=== PATIENT | male | born 1960 | race Caucasian/White ===

== ENCOUNTER → 2016-11-18 08:53 | Outpatient (CLI) | payer MEDICAID ==
[2015-12-24 14:29] VITALS: BMI 19.7
[~2016-11-18 08:53] MED LIST: BAYER CHEWABLE81 MG PO; HYDROCODONE-APA1 TAB PO; MIRALAX17 GM PO; NICODERM C1 PATCH .2 TRANSDERM; NORVASC10 MG PO; NORVASC5 MG PO; PLAVIX75 MG PO; PROTONIX40 MG PO; PROZAC20 MG PO; TYLENOL #4 W/CO1 TAB PO; XARELTO15 MG PO
[2016-11-19 08:21] LABS: IMMUNOGLOBULIN E 134 IU/mL (0-100)
== END | disposition home or self-care (01) ==
LOC: D.RT 08:53
PROVIDERS: Internal Medicine Pulmonary Disease
DX: J44.9 Chronic obstructive pulmonary disease, unspecified (principal)

== ENCOUNTER → 2017-01-13 11:21 | Outpatient (CLI) | payer MEDICAID ==
[2015-12-24 14:29] VITALS: BMI 19.7
== END | disposition home or self-care (01) ==
LOC: D.US 11:00
DX: R60.0 Localized edema (principal); M79.605 Pain in left leg

== ENCOUNTER → 2017-02-01 12:57 | Outpatient (CLI) | payer MEDICAID ==
[2015-12-24 14:29] VITALS: BMI 19.7
== END | disposition home or self-care (01) ==
LOC: D.CT 12:57
DX: M79.9 Soft tissue disorder, unspecified (principal)

== ENCOUNTER 2017-06-27 14:42 | Emergency (ER) | payer MEDICAID ==
[2015-12-24 14:29] VITALS: BMI 19.7
[2017-06-27 15:26] LABS: BASOPHILS 0.2 % (0-2); EOSINOPHILS 0.6 % (0-7); HEMATOCRIT 35.7 % (42.0-54.0); HEMOGLOBIN 12.1 g/dL (13.5-17.5); IMMATURE GRANULOCYTES 0.2 % (0-5); LYMPHOCYTES 14.2 % (15-50); MCHC 33.9 g/dL (31.0-37.0); MCV 88.4 fL (80.0-100.0); MEAN PLATELET VOLUME 9.5 fL (7.4-10.4); NEUTROPHILS 72.8 % (40-80); PLATELET COUNT 364 10x3/uL (130-400); RBC 4.04 10x6/uL (4.20-6.10); RDW 14.6 % (11.5-14.5); WBC 12.2 10x3/uL (4.8-10.8)
[2017-06-27 15:38] LABS: APTT 29.3 SECONDS (22.8-39.4); INR 0.9 (0.85-1.17)
[2017-06-27 16:19] LABS: ALBUMIN 3.5 g/dL (3.4-5.0); ALKALINE PHOSPHATASE 54 U/L (46-116); ALT (SGPT) 17 U/L (10-68); BILIRUBIN - TOTAL 0.26 mg/dL (0.2-1.3); CALC OSMOLALITY 276 mosm/kg (275-300); CALCIUM 8.7 mg/dL (8.5-10.1); CARBON DIOXIDE 23.9 mmol/L (21.0-32.0); CHLORIDE - SERUM 105 mmol/L (98-107); CREATININE - SERUM 0.6 mg/dL (0.6-1.3); GLUCOSE 109 mg/dL (74-106); POTASSIUM - SERUM 3.9 mmol/L (3.5-5.1); PROTEIN - SERUM 6.9 g/dL (6.4-8.2); SODIUM 140 mmol/L (136-145); UREA NITROGEN 4 mg/dL (7-18); eGFR NON AFRICAN AMERICAN > 90 mL/min (90-120)
== END 2017-06-27 17:47 | disposition home or self-care (01) ==
LOC: D.ER 14:42
PROVIDERS: Family Medicine; Physician Assistant
DX: R51 Headache (principal); S49.92XA Unspecified injury of left shoulder and upper arm, initial encounter; W01.0XXA Fall on same level from slipping, tripping and stumbling without subsequent striking against object, initial encounter; Y93.89 Activity, other specified; Y92.89 Other specified places as the place of occurrence of the external cause; R07.81 Pleurodynia; Z79.01 Long term (current) use of anticoagulants; K21.9 Gastro-esophageal reflux disease without esophagitis; F17.200 Nicotine dependence, unspecified, uncomplicated

== ENCOUNTER → 2017-07-05 09:10 | Outpatient (CLI) | payer MEDICAID ==
[2015-12-24 14:29] VITALS: BMI 19.7
--- NOTE | 2017-07-19 08:55 | ST ---
PATIENT:SUJIT SPANGLER MEDICAL RECORD: [id number] SEX: M LOCATION:[facility] ORDER #: ADMISSION DATE: 07/05/17 AGE OF PATIENT: 56 REFERRING PHYSICIAN: INTERPRETING PHYSICIAN: ERICA VERGARA MD DATE OF SERVICE: 07/05/2017 PROCEDURE: Lexiscan directed stress test. The patient had 12.7 mCi of sestamibi injected at rest and 32.1 mCi sestamibi injected at stress. We utilized a standard Lexiscan protocol. The procedure was completed without any difficulties. The gated imaging revealed an ejection fraction of 60%. The SPECT imaging reveals no evidence of significant ischemia or infarction. The study was essentially negative. TRANSINT:[id number] Voice Confirmation ID: [id number] DOCUMENT ID: [id number] ERICA VERGARA MD at 0855 CC: [id number] DICTATION DATE: 07/07/17 0756 CIVIL ENGINEERING TECHNICIAN: 07/07/17 1059 DEP CLI 07/05/17 [address] [place] [address]
== END | disposition home or self-care (01) ==
LOC: D.NM 09:10
DX: R07.9 Chest pain, unspecified (principal); R06.02 Shortness of breath

== ENCOUNTER → 2017-07-13 17:21 | Outpatient (CLI) | payer MEDICAID ==
[2015-12-24 14:29] VITALS: BMI 19.7
[2017-07-13 19:55] LABS: CHOL - HDL RATIO 2.6 ratio (2.3-4.9); LDL-HDL RATIO 1.4 ratio (1.5-3.5)
== END | disposition home or self-care (01) ==
LOC: D.LABREF 17:21
PROVIDERS: Internal Medicine Cardiovascular Disease
DX: I25.10 Atherosclerotic heart disease of native coronary artery without angina pectoris (principal)

== ENCOUNTER → 2017-09-27 13:01 | Outpatient (CLI) | payer MEDICAID ==
[2015-12-24 14:29] VITALS: BMI 19.7
== END | disposition home or self-care (01) ==
LOC: D.US 13:01
DX: I65.23 Occlusion and stenosis of bilateral carotid arteries (principal); I20.9 Angina pectoris, unspecified

== ENCOUNTER 2017-09-27 14:20 | Emergency (ER) | payer MEDICAID ==
[2015-12-24 14:29] VITALS: BMI 19.7
[2017-09-27 15:23] LABS: APPEARANCE CLEAR (CLEAR); BILIRUBIN NEGATIVE (NEGATIVE); COLOR YELLOW (YELLOW); GLUCOSE NEGATIVE (NEGATIVE); KETONE NEGATIVE (NEGATIVE); NITRITE NEGATIVE (NEGATIVE); PROTEIN NEGATIVE (NEGATIVE); SPECIFIC GRAVITY 1.015 (1.005-1.020); UROBILINOGEN NORMAL (NORMAL)
== END 2017-09-27 18:40 | disposition home or self-care (01) ==
LOC: D.ER 14:20
PROVIDERS: Family Medicine
DX: J06.9 Acute upper respiratory infection, unspecified (principal); J01.90 Acute sinusitis, unspecified; K21.9 Gastro-esophageal reflux disease without esophagitis; F17.200 Nicotine dependence, unspecified, uncomplicated

== ENCOUNTER 2017-10-24 17:14 | Emergency (ER) | payer MEDICAID ==
[2015-12-24 14:29] VITALS: BMI 19.7
[2017-10-24 18:37] LABS: INR 2.44 (0.85-1.17); PROTIME 25.9 SECONDS (11.6-15.0)
[2017-10-24 18:39] LABS: D-DIMER-QUANTITATIVE 0.96 ug/mLFEU (0.20-0.54)
[2017-10-24 18:40] LABS: BASOPHILS 0.3 % (0-2); EOSINOPHILS 0.8 % (0-7); HEMATOCRIT 30.1 % (42.0-54.0); HEMOGLOBIN 10.1 g/dL (13.5-17.5); IMMATURE GRANULOCYTES 0.3 % (0-5); LYMPHOCYTES 16.6 % (15-50); MCH 28.3 pg (26.0-34.0); MCHC 33.6 g/dL (31.0-37.0); MCV 84.3 fL (80.0-100.0); MEAN PLATELET VOLUME 9.8 fL (7.4-10.4); MONOCYTES 12.8 % (2-11); NEUTROPHILS 69.2 % (40-80); PLATELET COUNT 410 10x3/uL (130-400); RBC 3.57 10x6/uL (4.20-6.10); RDW 13.6 % (11.5-14.5); WBC 11.7 10x3/uL (4.8-10.8)
[2017-10-24 18:54] LABS: ALBUMIN 2.9 g/dL (3.4-5.0); ALKALINE PHOSPHATASE 175 U/L (46-116); ALT (SGPT) 121 U/L (10-68); CALC OSMOLALITY 271 mosm/kg (275-300); CALCIUM 8.9 mg/dL (8.5-10.1); CHLORIDE - SERUM 100 mmol/L (98-107); CREATININE - SERUM 0.8 mg/dL (0.6-1.3); GLUCOSE 109 mg/dL (74-106); POTASSIUM - SERUM 4.2 mmol/L (3.5-5.1); PROTEIN - SERUM 7.2 g/dL (6.4-8.2); SODIUM 136 mmol/L (136-145); UREA NITROGEN 10 mg/dL (7-18); eGFR NON AFRICAN AMERICAN > 90 mL/min (90-120)
== END 2017-10-24 21:45 | disposition home or self-care (01) ==
LOC: D.ER 17:14
PROVIDERS: Family Medicine; Nurse Practitioner Family
DX: S80.11XA Contusion of right lower leg, initial encounter (principal); W01.0XXA Fall on same level from slipping, tripping and stumbling without subsequent striking against object, initial encounter; Y93.89 Activity, other specified; Y92.019 Unspecified place in single-family (private) house as the place of occurrence of the external cause; Z86.718 Personal history of other venous thrombosis and embolism; M79.604 Pain in right leg

== ENCOUNTER → 2017-11-14 13:30 | Outpatient (CLI) | payer MEDICAID ==
[2015-12-24 14:29] VITALS: BMI 19.7
[2017-11-15 06:39] LABS: CHOL - HDL RATIO 2.6 ratio (2.3-4.9); LDL-HDL RATIO 1.4 ratio (1.5-3.5)
== END ==
LOC: D.LABREF 13:30
PROVIDERS: Internal Medicine Cardiovascular Disease
DX: I25.10 Atherosclerotic heart disease of native coronary artery without angina pectoris (principal)

== ENCOUNTER → 2017-12-16 09:46 | Outpatient (CLI) | payer MEDICAID ==
[2015-12-24 14:29] VITALS: BMI 19.7
== END | disposition home or self-care (01) ==
LOC: D.US 09:46
DX: D50.9 Iron deficiency anemia, unspecified (principal)

== ENCOUNTER → 2017-12-30 12:53 | Outpatient (CLI) | payer MEDICAID ==
[2015-12-24 14:29] VITALS: BMI 19.7
== END | disposition home or self-care (01) ==
LOC: D.CT 12:53
DX: N28.1 Cyst of kidney, acquired (principal)

== ENCOUNTER → 2018-01-16 19:35 | Outpatient (CLI) | payer MEDICAID ==
[2015-12-24 14:29] VITALS: BMI 19.7
== END | disposition home or self-care (01) ==
LOC: D.LAB 19:35
DX: R31.9 Hematuria, unspecified (principal)

== ENCOUNTER → 2018-01-27 15:45 | Outpatient (CLI) | payer MEDICAID ==
[2015-12-24 14:29] VITALS: BMI 19.7
== END | disposition home or self-care (01) ==
LOC: D.CT 15:45
DX: R31.0 Gross hematuria (principal)

== ENCOUNTER 2018-02-16 05:50 | Day surgery (SDC) | payer MEDICAID ==
[2018-02-15 16:34] LABS: HEMATOCRIT 32.9 % (42.0-54.0); HEMOGLOBIN 11.1 g/dL (13.5-17.5); MCH 28.2 pg (26.0-34.0); MCHC 33.7 g/dL (31.0-37.0); MCV 83.5 fL (80.0-100.0); MEAN PLATELET VOLUME 9.4 fL (7.4-10.4); RBC 3.94 10x6/uL (4.20-6.10); RDW 15.4 % (11.5-14.5); WBC 7.2 10x3/uL (4.8-10.8)
[~2018-02-16] VITALS: Ht 170.2 cm; Wt 58.1 kg
--- NOTE | ~2018-02-16 | OP ---
PATIENT NAME: SUJIT SPANGLER MEDICAL RECORD: [id number] :62 LOCATION:D.OPS ADMISSION DATE: SURGEON: BRYSON QURESHI MD DATE OF OPERATION: 02/16/2018 SURGEON: Bryson Qureshi MD ANESTHESIA: General anesthesia by Og Casiano CRNA DIAGNOSIS: Gross hematuria. PROCEDURE: Cystoscopy. 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 Single ureteral orifices bilaterally with vascular bladder mucosa. No bladder tumors seen. BLOOD LOSS: None. CLINICAL HISTORY: This is a 57-year-old male, who is a former smoker. He has had episodes of gross hematuria. 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 He had a CT scan of the abdomen and pelvis, which showed simple bilateral renal cysts. These are benign. There is also a 3-mm stone in the left kidney, which is nonobstructive. Urine cytology was normal. He comes today to have hematuria workup completion with cystoscopy. It should be noted that Dr. Travis, his emergency generator mechanic, okayed holding the Xarelto prior to the procedure. The patient is not allergic to any medications. He was given Ancef cert occupational therapy asst to the OR. He requested general anesthetic for this procedure. DESCRIPTION OF PROCEDURE: The patient was given induction of general anesthesia. He was placed in dorsal lithotomy position and prepped and draped. The 17-Maltese cystoscope with 30-degree lens was used for visualization. We used normal saline for irrigation fluid. Penile urethra shows no lesions and no strictures. Prostatic urethra shows a vascular mucosa. The lateral lobes are not obstructive, but the median lobe is somewhat enlarged. Going into the bladder, the bladder was not trabeculated. However, it is quite vascular. Single ureteral orifices were seen on each side. No bladder tumors were seen. The bladder was then emptied through the scope sheath and then the scope was removed entirely. I will see the patient in followup on a p.r.n. basis. TRANSINT:[id number] Voice Confirmation ID: [id number] DOCUMENT ID: [id number] BRYSON QURESHI MD at 1110 CC: [id number] DICTATION DATE: 02/16/18 0955 PROFILING MACHINE SET UP OPERATOR TOOL: 02/16/18 1013 [facility] [address] [place] [address]
[2018-02-16 06:36] VITALS: BP 112/72; Ht 170.2 cm; Wt 58.1 kg
== END 2018-02-16 11:45 | disposition home or self-care (01) ==
LOC: D.OPS 05:50 → D.PAN 08:00 → D.OPS 08:00 → D.PAN 08:35 → D.OPS 11:45
PROVIDERS: Anesthesiology
DX: N32.0 Bladder-neck obstruction (principal); N36.9 Urethral disorder, unspecified; N20.0 Calculus of kidney; R31.0 Gross hematuria; Z87.891 Personal history of nicotine dependence; Z79.01 Long term (current) use of anticoagulants; Z01.812 Encounter for preprocedural laboratory examination

== ENCOUNTER 2018-04-09 11:02 | Emergency (ER) | payer MEDICAID ==
[~2018-04-09] VITALS: Ht 170.2 cm; Wt 59.1 kg
[2018-04-09 11:11] VITALS: Ht 170.2 cm; Wt 59.1 kg
[2018-04-09] MEDS ORDERED: ASPIRIN81 MG PO (11:12)
[2018-04-09 13:46] VITALS: BP 142/78
== END 2018-04-09 13:47 | disposition home or self-care (01) ==
LOC: D.ER 11:02
DX: S80.11XA Contusion of right lower leg, initial encounter (principal); W22.8XXA Striking against or struck by other objects, initial encounter; Y93.89 Activity, other specified; Y92.89 Other specified places as the place of occurrence of the external cause; Z86.73 Personal history of transient ischemic attack (TIA), and cerebral infarction without residual deficits; I10 Essential (primary) hypertension; F17.200 Nicotine dependence, unspecified, uncomplicated

== ENCOUNTER → 2018-04-14 16:06 | Outpatient (CLI) | payer MEDICAID ==
[2018-04-09 11:11] VITALS: BMI 20.4
[~2018-04-14 16:06] MED LIST changes: +ASPIRIN81 MG PO
== END | disposition home or self-care (01) ==
LOC: D.US 16:00
DX: I73.9 Peripheral vascular disease, unspecified (principal); M79.605 Pain in left leg; M79.604 Pain in right leg

== ENCOUNTER 2018-05-29 15:33 | Emergency (ER) | payer MEDICAID ==
[~2018-05-29] VITALS: Ht 170.2 cm; Wt 60.0 kg
[2018-05-29 15:40] VITALS: Ht 170.2 cm; Wt 60.0 kg
[2018-05-29] MEDS ORDERED: TALWIN NX1 TAB PO (16:32)
[2018-05-29] MEDS ORDERED: BACLOFEN20 M1 PO (16:32)
[2018-05-29 22:40] VITALS: BP 171/99
== END 2018-05-29 17:06 | disposition home or self-care (01) ==
LOC: D.ER 15:33
DX: S59.911A Unspecified injury of right forearm, initial encounter (principal); W22.8XXA Striking against or struck by other objects, initial encounter; Y93.89 Activity, other specified; Y92.89 Other specified places as the place of occurrence of the external cause; Z86.73 Personal history of transient ischemic attack (TIA), and cerebral infarction without residual deficits; I10 Essential (primary) hypertension

== ENCOUNTER 2018-07-29 13:44 | Emergency (ER) | payer MEDICAID ==
[~2018-07-29] VITALS: Ht 170.2 cm; Wt 57.7 kg
[~2018-07-29 13:44] MED LIST changes: +BACLOFEN20 M1 PO; +TALWIN NX1 TAB PO
[2018-07-29 13:56] VITALS: Ht 170.2 cm; Wt 57.7 kg
[2018-07-29 14:23] LABS: BASOPHILS 0.3 % (0-2); HEMATOCRIT 34.4 % (42.0-54.0); HEMOGLOBIN 11.5 g/dL (13.5-17.5); IMMATURE GRANULOCYTES 0.3 % (0-5); LYMPHOCYTES 18.2 % (15-50); MCH 28.3 pg (26.0-34.0); MCHC 33.4 g/dL (31.0-37.0); MCV 84.5 fL (80.0-100.0); MEAN PLATELET VOLUME 9.4 fL (7.4-10.4); MONOCYTES 8.9 % (2-11); NEUTROPHILS 70.3 % (40-80); RBC 4.07 10x6/uL (4.20-6.10); RDW 16.4 % (11.5-14.5); WBC 11.2 10x3/uL (4.8-10.8)
[2018-07-29 14:28] LABS: PLATELET COUNT 449 10x3/uL (130-400)
[2018-07-29 14:35] LABS: APPEARANCE CLEAR (CLEAR); BILIRUBIN NEGATIVE (NEGATIVE); COLOR YELLOW (YELLOW); GLUCOSE NEGATIVE (NEGATIVE); KETONE NEGATIVE (NEGATIVE); NITRITE NEGATIVE (NEGATIVE); PROTEIN NEGATIVE (NEGATIVE); UROBILINOGEN NORMAL (NORMAL)
[2018-07-29 14:48] LABS: ALBUMIN 3.3 g/dL (3.4-5.0); ALKALINE PHOSPHATASE 71 U/L (46-116); ALT (SGPT) 12 U/L (10-68); BILIRUBIN - TOTAL 0.06 mg/dL (0.2-1.3); CALC OSMOLALITY 289 mosm/kg (275-300); CALCIUM 9.3 mg/dL (8.5-10.1); CARBON DIOXIDE 24.4 mmol/L (21.0-32.0); CHLORIDE - SERUM 109 mmol/L (98-107); CREATININE - SERUM 0.9 mg/dL (0.6-1.3); GLUCOSE 108 mg/dL (74-106); POTASSIUM - SERUM 3.3 mmol/L (3.5-5.1); PROTEIN - SERUM 7.6 g/dL (6.4-8.2); SODIUM 145 mmol/L (136-145); UREA NITROGEN 12 mg/dL (7-18); eGFR NON AFRICAN AMERICAN > 90 mL/min (90-120)
[2018-07-29 15:51] VITALS: BP 136/83
== END 2018-07-29 16:01 | disposition home or self-care (01) ==
LOC: D.ER 13:44
PROVIDERS: Family Medicine
DX: J06.9 Acute upper respiratory infection, unspecified (principal); G89.18 Other acute postprocedural pain; Z86.73 Personal history of transient ischemic attack (TIA), and cerebral infarction without residual deficits; I10 Essential (primary) hypertension; I73.9 Peripheral vascular disease, unspecified; F17.200 Nicotine dependence, unspecified, uncomplicated; Z48.02 Encounter for removal of sutures

== ENCOUNTER 2018-09-04 18:45 | Emergency (ER) | payer MEDICAID ==
[~2018-09-04] VITALS: Ht 170.2 cm; Wt 56.8 kg
[2018-09-04 19:06] VITALS: Ht 170.2 cm; Wt 56.8 kg
[2018-09-04] MEDS ORDERED: VOLTAREN75 MG PO (19:44)
[2018-09-04 20:10] VITALS: BP 138/85
== END 2018-09-04 20:10 | disposition home or self-care (01) ==
LOC: D.ER 18:45
DX: M10.9 Gout, unspecified (principal); G56.02 Carpal tunnel syndrome, left upper limb; I10 Essential (primary) hypertension; J44.9 Chronic obstructive pulmonary disease, unspecified; F17.200 Nicotine dependence, unspecified, uncomplicated

== ENCOUNTER 2018-12-20 16:01 | Emergency (ER) | payer MEDICAID ==
[~2018-12-20] VITALS: Ht 170.2 cm; Wt 67.7 kg
[~2018-12-20 16:01] MED LIST changes: +VOLTAREN75 MG PO
[2018-12-20 16:31] VITALS: Ht 170.2 cm; Wt 67.7 kg
[2018-12-20] MEDS ORDERED: SINEQUAN25 MG PO (16:36)
[2018-12-20 19:54] LABS: BASOPHILS 0.1 % (0-2); HEMATOCRIT 38.9 % (42.0-54.0); HEMOGLOBIN 13.4 g/dL (13.5-17.5); IMMATURE GRANULOCYTES 0.4 % (0-5); LYMPHOCYTES 15.8 % (15-50); MCH 28.9 pg (26.0-34.0); MCHC 34.4 g/dL (31.0-37.0); MCV 83.8 fL (80.0-100.0); MEAN PLATELET VOLUME 10.2 fL (7.4-10.4); MONOCYTES 9.7 % (2-11); RBC 4.64 10x6/uL (4.20-6.10); RDW 14.5 % (11.5-14.5); WBC 13.8 10x3/uL (4.8-10.8)
[2018-12-20 19:55] LABS: PLATELET COUNT 340 10x3/uL (130-400)
[2018-12-20 20:11] LABS: ALBUMIN 3.8 g/dL (3.4-5.0); ALKALINE PHOSPHATASE 78 U/L (46-116); ALT (SGPT) 13 U/L (10-68); BILIRUBIN - TOTAL 0.35 mg/dL (0.2-1.3); CALC OSMOLALITY 268 mosm/kg (275-300); CALCIUM 8.8 mg/dL (8.5-10.1); CARBON DIOXIDE 24.7 mmol/L (21.0-32.0); CHLORIDE - SERUM 98 mmol/L (98-107); CREATININE - SERUM 0.8 mg/dL (0.6-1.3); GLUCOSE 107 mg/dL (74-106); POTASSIUM - SERUM 3.6 mmol/L (3.5-5.1); PROTEIN - SERUM 8.1 g/dL (6.4-8.2); SODIUM 135 mmol/L (136-145); UREA NITROGEN 9 mg/dL (7-18); eGFR NON AFRICAN AMERICAN > 90 mL/min (90-120)
[2018-12-20] MEDS ORDERED: AUGMENTIN 875-11 TAB PO (21:16)
[2018-12-20 22:04] VITALS: BP 136/78
== END 2018-12-20 22:04 | disposition home or self-care (01) ==
LOC: D.ER 16:01
PROVIDERS: Family Medicine
DX: S61.255A Open bite of left ring finger without damage to nail, initial encounter (principal); S61.257A Open bite of left little finger without damage to nail, initial encounter; Y93.89 Activity, other specified; Y92.89 Other specified places as the place of occurrence of the external cause; Z23 Encounter for immunization

== ENCOUNTER 2018-12-23 14:55 | Outpatient (CLI) | payer MEDICAID ==
[~2018-12-23] VITALS: Ht 170.2 cm; Wt 67.7 kg
[~2018-12-23 14:55] MED LIST changes: +AUGMENTIN 875-11 TAB PO; +SINEQUAN25 MG PO
[2018-12-23 15:34] VITALS: BP 175/102; Ht 170.2 cm; Wt 67.7 kg
--- NOTE | 2018-12-23 16:07 | NUR ---
SPOKE WITH OFELIA IN PHARMACY. DIRECTED TO GIVE IN DELTOID, MIX WHEN MED COMES TO FLOOR AND GIVE IMMEDIATELY. NO NEED TO MONITOR AFTER ADMINISTRATION.
--- NOTE | 2018-12-23 16:47 | NUR ---
MEDICATION ADMINISTERED. DISCHARGE PAPERWORK GIVEN, ALL QUESTIONS ANSWERED.
== END 2018-12-23 16:56 | disposition home or self-care (01) ==
LOC: D.ER 14:55 → D.OPS 14:55 → EDSTATUS 15:40 → D.MS 15:41 → D.OPS 16:56
PROVIDERS: ATTEND Emergency Medicine
DX: Z23 Encounter for immunization (principal)

== ENCOUNTER 2018-12-27 14:59 | Outpatient (CLI) | payer MEDICAID ==
[~2018-12-27] VITALS: Ht 170.2 cm; Wt 67.7 kg
[2018-12-27 15:16] VITALS: BP 151/95; Ht 170.2 cm; Wt 67.7 kg
== END 2018-12-27 15:42 | disposition home or self-care (01) ==
LOC: D.OPS 14:59
PROVIDERS: ATTEND Emergency Medicine
DX: Z23 Encounter for immunization (principal)

== ENCOUNTER 2019-01-03 12:47 | Outpatient (CLI) | payer MEDICAID ==
[~2019-01-03] VITALS: Ht 170.2 cm; Wt 66.4 kg
[2019-01-03 13:03] VITALS: BP 134/90; Ht 170.2 cm; Wt 66.4 kg
== END 2019-01-03 13:10 | disposition home or self-care (01) ==
LOC: D.OPS 12:47
PROVIDERS: ATTEND Emergency Medicine
DX: Z20.3 Contact with and (suspected) exposure to rabies (principal); Z23 Encounter for immunization

== ENCOUNTER 2020-09-29 10:44 | Day surgery (SDC) | payer MEDICAID ==
[~2020-09-29] VITALS: Ht 170.2 cm; Wt 59.0 kg
--- NOTE | ~2020-09-29 | HEMODYNAMI ---
PATIENT:SUJIT SPANGLER MEDICAL RECORD: [id number] : 62 LOCATION:D.CAT ADMISSION DATE: 09/29/20 Generatedon:113:10 Patient name: SUJIT SPANGLER Patient #: [id number] : 1960 Date of study: 09/29/2020 Page: Of Hemodynamic Procedure Report Patient Data Patient Demographics Procedure consent was obtained First Name: SUJIT Gender: Male Last Name: ANÍBAL : 1960 Middle Initial: MICHAELA Age: 59 year(s) Patient #: [id number] Race: Unknown SSN: [id number] Additional ID: [id number] Contact details [address]: [address] [place] [address] rd State: [place] City: [place] Zip code: [address] Past Medical History Allergies: No known allergies Admission Admission Data Admission Date: 09/29/2020 Admission Time: 10:44 Lab Results Lab Result Date: 09/29/2020 Lab Result Time: 0:00 Biochemistry Name Units Result Min Max Creatinine mg/dl 0.9 --(-*--)-- 0.6 1.3 eGFR ml/min 90 --(*---)-- 90 120 NONAFRICAN Procedure Procedure Types Cath Procedure Sedation Charges Moderate Sedation 40-54 minutes Peripheral vascular Intervention Lithotripsy Litho W Ather ENVIRONMENTAL COMPLIANCE OFFICER Stent Procedure Description Procedure Date Procedure Date: 09/29/2020 Procedure Start Time: 12:17 Procedure End Time: 13:08 Procedure Staff Name Function Maria Antonia Demarco RT Monitor Madeline Gar RT Scrub Mauri Garcia RN Nurse Yassine Jones MD Performing Physician Procedure Data Cath Procedure Fluoroscopy Diagnostic fluoroscopy Total fluoroscopy Time: 6.4 time: 6.4 min min Diagnostic fluoroscopy Total fluoroscopy dose: 221 dose: 221 mGy mGy Contrast Material Contrast Material Type Amount (ml) Isovue 300 140 Entry Location Entry Primary Successful Side Size Upsize Upsize Entry Closure Succes sful Closure Location (Fr) 1 (Fr) 2 (Fr) Remarks Device Remarks Femoral Right 5 Fr Exoseal artery Femoral Left 6 Fr Exoseal artery Short Estimated blood loss: 10 ml Diagnostic catheters Device Type Used For End Catheter Placement DIAGNOSTIC Pigtail 5Fr Procedure catheter ([id number]) Procedure Complications No complications Procedure Medications Medication Administration Route Dosage Oxygen etCO2 Nasal cannula 2 l/min Lidocaine 2% added to field 20 Heparin Flush Bag added to field 2 bags (1000units/500ml NS) 0.9% NaCl I.V. 100 ml/hr Versed I.V. 1 mg Fentanyl I.V. 50 mcg Versed I.V. 1 mg Fentanyl I.V. 50 mcg Versed I.V. 1 mg Heparin Bolus I.V. 6000 units Plavix P.O. 600 mg Hemodynamics Rest Heart Rate: 69 (bpm) Snapshots Pre Cath Intra NCS Post Cath Vital Signs Time Heart Resp SPO2 etCO2 NIBP (mmHg) Rhythm Pain Sedation Rate (ipm) (%) (mmHg) Status Level (bpm) 12:07:53 66 18 100 39.9 136/86(116) NSR 0 (11) 10(A) , No pain 12:12:09 65 15 100 28.6 119/70(100) NSR 0 (11) 10(A) , No pain 12:16:20 67 15 99 40.7 115/68(98) NSR 0 (11) 10(A) , No pain 12:20:30 75 14 99 1.5 95/67(88) NSR 0 (11) 9(A) , No pain 12:24:34 73 13 100 37.7 95/63(90) NSR 0 (11) 9(A) , No pain 12:28:38 73 13 99 0.7 103/62(82) NSR 0 (11) 9(A) , No pain 12:32:43 69 15 100 8.3 95/65(84) NSR 0 (11) 9(A) , No pain 12:36:47 72 14 100 32.4 97/64(91) NSR 0 (11) 9(A) , No pain 12:40:53 74 16 100 26.4 113/58(85) NSR 0 (11) 9(A) , No pain 12:45:05 73 17 100 39.9 105/59(81) NSR 0 (11) 9(A) , No pain 12:49:17 67 18 100 39.2 105/64(93) NSR 0 (11) 9(A) , No pain 12:53:23 71 14 100 26.3 105/67(98) NSR 0 (11) 9(A) , No pain 12:57:31 69 12 99 31.6 102/61(82) NSR 0 (11) 9(A) , No pain 13:01:34 66 14 100 36.9 122/69(106) NSR 0 (11) 10(A) , No pain 13:05:44 67 19 100 34.6 120/76(108) NSR 0 (11) 10(A) , No pain Medications Time Medication Route Dose Verified Delivered Reason Notes Effectiveness by by 12:07:09 Oxygen etCO2 2 Juan C Goodwinie used for Nasal l/min St Dylan Garcia RN procedure cannula 12:07:16 Lidocaine 2% added 20ml Juan C Buffie for local to vial St Dylan Garcia RN anesthetic field AADMS 12:07:22 Heparin Flush added 2 Juan C Buffie used for Bag to bags St Dylan Garcia RN procedure (1000units/500ml field ADAMS NS) 12:07:31 0.9% NaCl I.V. 100 Juan C Goodwinie Per physician ml/hr St Dylan Garcia RN, MD 12:12:40 Versed I.V. 1 mg Juan C Dotson for sedation St Dylan Garcia RN, MD 12:12:47 Fentanyl I.V. 50 Juan C Dotson for sedation mcg St Dylan Garcia RN, MD 12:17:58 Versed I.V. 1 mg Juan C Goodwinie for sedation St Dylan Garcia RN, MD 12:18:02 Fentanyl I.V. 50 Juan C Goodwinie for sedation mcg St Dylan Garcia RN, MD 12:20:31 Versed I.V. 1 mg Juan C Dotson for sedation St Dylan Garcia RN, MD 12:26:25 Heparin Bolus I.V. 6000 Juan C Goodwinie for verif ied units St Dylan Garcia RN anticoagulation with dr MD jones 13:04:19 Plavix P.O. 600 Juan C Dotson for mg St Dylan Garcia RN antiplatelet therapy Procedure Log Time Note 11:48:36 Mauri Garcia RN sent for patient. Start room use. 11:59:09 Informed consent obtained and on chart 11:59:31 Procedure Status PCI. 11:59:32 Time tracking: Regular hours (M-F 7:00 - 5:00) 11:59:35 Plan of Care:Hemodynamics will remain stable., Cardiac rhythm will remain stable., Comfort level will be maintained., Respiratory function will remain adequate., Patient/ family verbilizes understanding of procedure., Procedure tolerated without complication., Recovers from procedure without complications.. 11:59:46 Patient received from Pre/Post Procedure Room to CCL 1 Alert and oriented. Tansferred to table in Supine position. 12:00:34 Warm blankets applied, and nate hugger turned on for patient comfort. 12:00:39 Correct patient and procedure confirmed by team. 12:00:45 ECG and BP/O2 sat monitors applied to patient. 12:06:44 Vital chart was started 12:06:46 Baseline sample Acquired. 12:06:49 Rhythm: atrial fibrillation 12:06:52 Full Disclosure recording started 12:07:09 Oxygen 2 l/min etCO2 Nasal cannula was administered by Mauri Garcia RN; used for procedure; Verbal order read back and verified. 12:07:16 Lidocaine 2% 20ml vial added to field was administered by Mauri Garcia RN; for local anesthetic; Verbal order read back and verified. 12:07:22 Heparin Flush Bag (1000units/500ml NS) 2 bags added to field was administered by Mauri Garcia RN; used for procedure; Verbal order read back and verified. 12:07:31 0.9% NaCl 100 ml/hr I.V. was administered by Mauri Garcia RN; Per physician; Verbal order read back and verified. 12:10:15 H&P Date Dictated: 09/29/2020 Within 30 days and on chart., H&P Addendum completed by physician on day of procedure. (MUST COMPLETE FOR ALL OUTPATIENTS). 12:10:16 Pre-procedure instructions explained to patient. 12:10:16 Pre-op teaching completed and patient verbalized understanding. 12:10:17 Family unavailable. 12:10:19 Patient NPO since Midnight. 12:10:25 Patient allergic to No known allergies 12:10:27 Is the patient allergic to Iodine/contrast media? No. 12:10:29 Is patient on blood thinner?Yes 12:10:41 LAST DOSE OF XARELTO ON TUESDAY 12:10:43 Patient diabetic? No. 12:10:47 Previous problem with sedation/anesthesia? No ? 12:10:50 Snore? Yes 12:10:51 Sleep apnea? No 12:10:52 Deviated septum? No 12:10:53 Opens mouth fully? Yes 12:10:53 Sticks out tongue? Yes 12:10:56 Airway obstruction? No ? 12:10:58 Dentures? No ? 12:11:11 IV patent on arrival in left forearm with 0.9% NaCl at [facility]. 12:12:04 Lab Result : Creatinine 0.9 mg/dl 12:12:04 Lab Result : eGFR NONAFRICAN 90 ml/min 12:12:07 Lab results completed and on chart. 12:12:12 Bilateral groins area was prepped with chlora-prep and draped in sterile fashion 12:12:13 Alarms reviewed by R. N. 12:12:14 Sharps counted by scrub and verified by R.N. 12:12:21 --------ALL STOP TIME OUT------ 12:12:21 Final Timeout: patient, procedure, and site verified with staff and physician. All members of the team are in agreement. 12:12:23 Bilateral groins site verified by team. 12:12:25 Fire Safety Assessment: A--An alcohol-based skin anteseptic being used preoperatively., C--Open oxygen or nitrous oxide is being used., D--An ESU, laser, or fiber-optic light is being used. 12:12:28 Physical assessment completed. ASA score P 2 - A patient with mild systemic disease as per Juan C Mcclellan MD. 12:12:30 1) 90+ Normal kidney functon but urine findings or structural abnormalities or genetic trait point to kidney disease. 12:12:32 Maximum allowable contrast dose (3.7 X eGFR X 0.75)250 ml. 12:12:36 Sedation plan: IV Moderate Sedation Medication:Versed, Fentanyl 12:12:40 Versed 1 mg I.V. was administered by Mauri Garcia RN; for sedation; Verbal order read back and verified. 12:12:47 Fentanyl 50 mcg I.V. was administered by Mauri Garcia RN; for sedation; Verbal order read back and verified. 12:13:08 Use device set CATH PACK 12:13:09 ACIST Syringe (26621) opened to sterile field. 12:13:10 ACIST Hand Control (37319) opened to sterile field. 12:13:10 ACIST Manifold (05545) opened to sterile field. 12:13:10 Medline Cath Pack ([id number]) opened to sterile field. 12:13:11 Bag Decanter (2002S) opened to sterile field. 12:13:11 EMERALD Guide Wire (502-415) opened to sterile field. 12:13:21 SHEATH 5FR Sayre (RPZ797) opened to sterile field. 12:13:22 SHEATH 6FR Sayre (SJF288) opened to sterile field. 12:13:33 TUBING High Pressure Extension Tubing (Robert) ([id number]) opened to sterile field. 12:13:37 INFLATOR Merit BasixCompak (KK4058) opened to sterile field. 12:15:31 Procedure started. 12:17:02 Local anesthetic to right femoral artery with Lidocaine 2% by Yassine Jones MD.INITIAL ACCESS ONLY 12:17:58 Versed 1 mg I.V. was administered by Mauri Garcia RN; for sedation; Verbal order read back and verified. 12:18:02 Fentanyl 50 mcg I.V. was administered by Mauri Garcia RN; for sedation; Verbal order read back and verified. 12:19:35 A 5 Fr sheath was inserted into the Right Femoral artery 12:20:31 Versed 1 mg I.V. was administered by Mauri Garcia RN; for sedation; Verbal order read back and verified. 12:21:07 A DIAGNOSTIC Pigtail 5Fr catheter ([id number]) was advanced over the wire and used for Procedure. 12:23:21 PIGTAIL USED TO VISUALIZE ILIACS FOR LEFT. FEMORAL STICK 12:26:25 Heparin Bolus 6000 units I.V. was administered by Mauri Garcia RN; for anticoagulation; verified with dr jones Verbal order read back and verified. 12:27:16 Local anesthetic to left femerol artery with Lidocaine 2% by Yassine Jones MD.ADDITIONAL ACCESS 12:27:23 A 6 Fr Short sheath was inserted into the Left Femoral artery 12:27:35 Asahi Minamo 300cm wire opened to sterile field. 12:32:37 MINAMO 300 wire advanced. 12:32:50 Wire advanced across lesion. 12:36:07 Inflate balloon Inflation number: 1 A SHOCKWAVE BALLOON 7 X 60 ([id number]) was prepped and advanced across the Proximal Common Iliac, Left , then inflated to 2 DREW for 1:02 (min:sec) . 12:36:22 FIRST INFLATION AT 2 DREW FOR 30 PULSES 12:37:10 Inflation number: 2 The SHOCKWAVE BALLOON 7 X 60 ([id number]) was reinflated across the Proximal Common Iliac, Left , to 4 DREW for 0:41 (min:sec) . 12:37:24 2ND INFLATION AT 4ATM FOR 30 PULSES 12:39:17 Inflation number: 3 The SHOCKWAVE BALLOON 7 X 60 ([id number]) was reinflated across the Proximal Common Iliac, Left , to 2 DREW for 0:49 (min:sec) . 12:39:33 2ND LESION AT 2ATMS FOR 30 PULSES 12:40:20 Inflation number: 4 The SHOCKWAVE BALLOON 7 X 60 ([id number]) was reinflated across the Proximal Common Iliac, Left , to 4 DREW for 0:40 (min:sec) . 12:40:37 2ND LESION AT 4ATMS FOR 30 PULSES 12:42:35 Inflation number: 5 The SHOCKWAVE BALLOON 7 X 60 ([id number]) was reinflated across the Proximal Common Iliac, Left , to 4 DREW for 0:51 (min:sec) . 12:42:48 2ND LESION AT 4ATMS FOR 30 PULSES 12:43:39 Inflation number: 6 The SHOCKWAVE BALLOON 7 X 60 ([id number]) was reinflated across the Proximal Common Iliac, Left , to 4 DREW for 0:44 (min:sec) . 12:43:57 2ND LESION AT 4ATMS FOR 30 PULSES 12:45:24 Inflation number: 7 The SHOCKWAVE BALLOON 7 X 60 ([id number]) was reinflated across the Proximal Common Iliac, Left , to 5 DREW for 1:02 (min:sec) . 12:47:38 Balloon removed over the wire. 12:51:06 Procedure type changed to Cath procedure, Sedation Charges, Moderate Sedation 40-54 minutes, Peripheral vascular Intervention, Lithotripsy, Litho W Ather ENVIRONMENTAL COMPLIANCE OFFICER Stent 12:54:14 Place stent Inflation Number: 8 A RICK 7 x 29 x 135 stent ([id number]) was prepped and advanced across the Proximal Common Iliac, Left . The stent was deployed at 9 DREW for 0:30 (min:sec) . 12:54:54 Stent catheter was removed intact over wire. 12:56:41 Wire removed. 12:57:54 EXOSEAL 6Fr (EX600) opened to sterile field. 12:57:55 EXOSEAL 5Fr (EX500) opened to sterile field. 12:58:43 Sheath removed intact; hemostasis achieved with Exoseal to the Left Femoral artery. 12:58:53 Sheath removed intact; hemostasis achieved with Exoseal to the Right Femoral artery. 13:00:57 Procedure ended.(Physican Out) 13:03:29 ACT drawn and resulted at 324 seconds. (normal therapeutic range 180-240 seconds). 13:04:19 Plavix 600 mg P.O. was administered by Mauri Garcia RN; for antiplatelet therapy; Verbal order read back and verified. 13:06:07 Fluoroscopy time 06.40 minutes. 13:06:10 Flurop Dose total: 221 13:06:10 Fluoroscopy dose: 221 mGy 13:06:14 Dose Area Product 14312 mGy/cm. 13:06:18 Contrast amount:Isovue 300 140ml. 13:06:20 Maximum allowable dose exceeded? No. 13:06:21 Sharps counted by scrub and verified by R.N. 13:06:24 Post-op/insertion site Right Femoral artery dressed using a 4 x 4 and Tegaderm. 13:06:26 Post-op/insertion site Left Femoral artery dressed using a 4 x 4 and Tegaderm. 13:06:30 Post-procedure physical assessment completed. ASA score P 2 - A patient with mild systemic disease as per Yassine Jones MD. 13:06:51 Post procedure rhythm: unchanged. 13:06:53 Estimated blood loss: 10 ml 13:06:54 Post procedure instruction explained to patient.Patient verbalizes understanding. 13:06:55 Patient needs reinforcement of post procedure teaching. 13:08:17 Procedure and supply charges have been captured, reviewed, submitted and are correct. 13:08:19 Procedure Complication : No complications 13:08:21 Vital chart was stopped 13:08:24 AFRO Findings: PVD: ENVIRONMENTAL COMPLIANCE OFFICER performed (see procedure notes) 13:08:25 Operative report dictated upon procedure completion. 13:08: See physician's report for complete and final results. 13:08:28 Report given to Pre/Post Procedure Room. 13:08:31 Patient transfered to Pre/Post Procedure Room with Bed. 13::33 Procedure ended. 13::33 Full Disclosure recording stopped 13:08:43 ACC-PCI Only Patient was given prescriptions, or instructed by Yassine Jones MD to start/continue the following medications upon discharge: Plavix 13:08:49 End room use (Document Last) 13:09:30 End room use (Document Last) 13:10:00 End room use (Document Last) Intervention Summary Intervention Notes Time ActionType Lesion and Equipment Used Action# Pressure Duration Attributes 12:36:07 Inflate Proximal SHOCKWAVE BALLOON 1 2 01:02 balloon Common 7 X 60 Iliac, Left ([id number]) 12:37:10 Reinflate Proximal SHOCKWAVE BALLOON 2 4 00:41 balloon Common 7 X 60 Iliac, Left ([id number]) 12:39:17 Reinflate Proximal SHOCKWAVE BALLOON 3 2 00:49 balloon Common 7 X 60 Iliac, Left ([id number]) 12:40:20 Reinflate Proximal SHOCKWAVE BALLOON 4 4 00:40 balloon Common 7 X 60 Iliac, Left ([id number]) 12:42:35 Reinflate Proximal SHOCKWAVE BALLOON 5 4 00:51 balloon Common 7 X 60 Iliac, Left ([id number]) 12:43:39 Reinflate Proximal SHOCKWAVE BALLOON 6 4 00:44 balloon Common 7 X 60 Iliac, Left ([id number]) 12:45:24 Reinflate Proximal SHOCKWAVE BALLOON 7 5 01:02 balloon Common 7 X 60 Iliac, Left ([id number]) 12:54:14 Place stent Proximal RICK 7 x 29 x 8 9 00:30 Common 135 stent Iliac, Left ([id number]) Device Usage Item Name Manufacture Quantity Catalog Number Hospital Part Cu rrent Minimal Lot# / Charge Number Stock Stock Serial# Code ACIST Syringe Acist 1 63124 657278 076139 98 4929 20 (35496) [employer] ACIST Hand Control Acist 1 80378 446663 797422 98 5360 5 (87562) [employer] ACIST Manifold Acist 1 30871 656544 473938 98 5375 5 (07480) [employer] Medline Cath Pack Medline 1 [id number] 992302 52678 98 5534 5 ([id number]) Bag Decanter Microtek 1 2001S 421107 96094 98 3127 5 (2001S) Medical Inc. EMERALD Guide Wire Cardinal 1 502-455 153068 434281 99 7104 5 (502-455) Health SHEATH 5FR Terumo 1 AFR377 772990 695529 99 3224 5 Sayre (AVX197) SHEATH 6FR Terumo 1 RTZ226 168802 285120 99 4372 40 Sayre (MGP859) TUBING High Merit 1 [id number] 873206 20451 99 8953 10 Pressure Extension Medical Tubing (Jones) ([id number]) INFLATOR Merit Merit 1 BQ4689 551204 209102 99 1476 15 [facility] (UV2808) DIAGNOSTIC Pigtail Cardinal 1 [id number] 417032 758800 99 9605 5 5Fr catheter Health (138308P) Asahi Minamo 300cm Asahi Intecc 1 [id number] 010425 4551626 10 9950 0 wire SHOCKWAVE BALLOON SHOCKWAVE 1 [id number] 581983 8118210 99 9997 1 7 X 60 MEDICAL ([id number]) RICK 7 x 29 x Cardinal 1 [id number] 743234 09601 99 9968 5 135 stent Health ([id number]) EXOSEAL 6Fr Cardinal 1 EX600 287638 298544 99 5486 10 (EX600) Health EXOSEAL 5Fr Cardinal 1 EX500 900433 194581 99 6913 10 (EX500) Health Signature Audit [place] Stage Time Signature Unsigned Intra-Procedure 09/29/2020 Maria Antonia Demarco 1:09:30 PM RT(R) Intra-Procedure 09/29/2020 Mauri Garcia RN 1:10:00 PM Intra-Procedure 09/29/2020 Yassine Jones MD 1:10:44 PM [address] [place] [address]
[~2020-09-29 10:44] MED LIST changes: +HYDROCODON-ACE1 EA10 PO
[2020-09-29 11:01] VITALS: BP 154/84; Ht 170.2 cm; Wt 59.0 kg
[2020-09-29 11:21] LABS: CALC OSMOLALITY 275 mosm/kg (275-300); CALCIUM 8.9 mg/dL (8.5-10.1); CARBON DIOXIDE 26.7 mmol/L (21.0-32.0); CHLORIDE - SERUM 101 mmol/L (98-107); CREATININE - SERUM 0.9 mg/dL (0.6-1.3); GLUCOSE 104 mg/dL (74-106); POTASSIUM - SERUM 3.4 mmol/L (3.5-5.1); SODIUM 139 mmol/L (136-145); UREA NITROGEN 8 mg/dL (7-18); eGFR NON AFRICAN AMERICAN > 90 mL/min (90-120)
[2020-09-29 12:22] LABS: BASOPHILS 0.5 % (0-2); EOSINOPHILS 3.2 % (0-7); HEMOGLOBIN 13.5 g/dL (13.5-17.5); IMMATURE GRANULOCYTES 0.3 % (0-5); LYMPHOCYTE ABS# 1.67 10x3/uL (1.32-3.57); MCH 29.2 pg (26.0-34.0); MCHC 32.9 g/dL (31.0-37.0); MCV 88.6 fL (80.0-100.0); MEAN PLATELET VOLUME 10.5 fL (7.4-10.4); MONOCYTES 7.3 % (2-11); NEUTROPHIL ABS# 8.19 10x3/uL (1.78-5.38); NEUTROPHILS 73.7 % (40-80); PLATELET COUNT 466 10x3/uL (130-400); RBC 4.63 10x6/uL (4.20-6.10); WBC 11.1 10x3/uL (4.8-10.8)
--- NOTE | 2020-09-29 13:15 | NUR ---
PT RECEIVED BACK TO ROOM 3 VIA STRETCHER FOR RECOVERY. PT DROWSY BUT VERBALLY AROUSABLE, HE DENIES SOME DISCOMFORT IN LEGS LIKE BEFORE THE PROCEDURE, NOT ANY WORSE. R GROIN AND L GROIN W OPSITE DRESSINGG IN PLACE, CDI NO S/S HEMATOMA OR BLEEDING IN EITHER LEG. LEGS PINK AND WARM, PEDAL PULSES AUDIBLE X4 W DOPPLER. PT INSTRUCTED TO KEEP HEAD ON PILLOW AND LEGS STRAIGHT, HE VERBALIZED UNDERSTANDING. IV PATENT INFUSING VIA ORDERS TO L ARM. PT PLACED ON CARDIAC MONITORS AND O2 VIA NCA AT 2L. CALL LIGHT IN REACH. URINAL PLACED PER PT REQUEST
[2020-09-29] MEDS ORDERED: PLAVIX75 MG PO (13:20)
--- NOTE | 2020-09-29 13:45 | NUR ---
PT RESTING COMFORTABLY, R GROIN AND L GROIN SOFT, NO S/S HEMATOMA OR BLEEDING AT EITHER SITE. DRESSING REMAINS CDI. VSS AT PRESENT. CALL LIGHT IN REACH
--- NOTE | 2020-09-29 14:30 | NUR ---
R AND L GROIN SOFT, NO S/S HEMATOMA OR BLEEDING. LEGS REMAINS WARM AND PINK. DRESSING CDI X2. VSS AT PRESENT. PT GIVEN SIPS OF PO FLUIDS. CALL LIGHT REMAINS IN REACH, PT DENIES PAIN OR OTHER NEEDS AT THIS TIME.
--- NOTE | 2020-09-29 15:00 | NUR ---
R AND L GROIN SOFT, NO S/S HEMATOMA. DRESSING CDI X2. VSS AT PRESENT, PT RESTING COMFORTABLY. TOLERATING PO FLUIDS. CALL LIGHT REMAINS IN REACH
--- NOTE | 2020-09-29 15:33 | NUR ---
PT RESTING COMFORTABLY. R AND L GROIN SOFT, NO S/S HEMATOMA. CALL LIGHT IN REACH. NO NEEDS REQUESTED AT THIS TIME. VSS.
--- NOTE | 2020-09-29 16:03 | NUR ---
R AND L GROIN REMAINS SOFT, DRESSINGS CDI NO S/S HEMATOMA OR BLEEDING. HOB ELEVATED SLIGHTLY. O2 REMOVED. PT DENIES PAIN OR NEEDS. OFFERED SANDWICH, HE DECLINES AT THIS TIME. CALL LIGHT REMAINS IN REACH
--- NOTE | 2020-09-29 16:30 | NUR ---
R AND L GROIN SOFT, NO S/S HEMATOMA OR BLEEDING. DRESSING CDIX2. CALL LIGHT IN REACH, VSS AT PRESENT
--- NOTE | 2020-09-29 16:59 | NUR ---
DISCHARGE INSTRUCTIONS REVIEWED W PT, ALSO DISCUSSED IMPORTANCE OF GETTING PLAVIX PRESCRIPTION FILLED AND STARTING IT TOMORROW. HE VERBALIZED UNDERSTANDING. IV REMOVED W CATH INTACT, MONITORS REMOVED. R AND L GROIN REMAIN SOFT, DRESSING CDI NO S/S HEMATOMA OR BLEEDING. PT UP TO DRESS FOR DISCHARGE. 600CC CLEAR YELLOW URINE EMPTIED FROM URINAL
--- NOTE | 2020-09-29 17:10 | NUR ---
PT AMBULATED TO BR, VOIDING W/O DIFFICULITY. PT DISCHARGED TO FAMILY WAITING IN PRIVATE VEHICLE. PT HAD ALL BELONGINGS AND DISCHARGE FOLDER
== END 2020-09-29 15:15 | disposition home or self-care (01) ==
LOC: D.CATH 10:44
PROVIDERS: ATTEND Internal Medicine Cardiovascular Disease
DX: I70.212 Atherosclerosis of native arteries of extremities with intermittent claudication, left leg (principal)
CPT/HCPCS: C9765; C9764

== ENCOUNTER 2020-10-25 18:30 | Inpatient (IN) | payer MEDICAID ==
[~2020-10-25] VITALS: Ht 170.2 cm; Wt 59.0 kg
--- NOTE | ~2020-10-25 | EC ---
PATIENT:SUJIT SPANGLER DATE OF SERVICE: 10/26/20 SEX: M MEDICAL RECORD: [id number] DATE OF : 62 LOCATION:D.M2 D.213 AGE OF PATIENT: 59 ADMISSION DATE: 10/26/20 REFERRING PHYSICIAN: INTERPRETING PHYSICIAN: ESTRELLITA GRAF MD ECHOCARDIOGRAM REPORT ECHO CHARGES 4 ECHO COMPLETE Date: 10/26/20 CLINICAL DIAGNOSIS: UNILATERAL EDEMA ECHOCARDIOGRAPHIC MEASUREMENTS (adult normal given) AC root (d.<3.7cm) 3.1 cm LV Septum d (<1.2 cm> 1.2 cm Valve Excursion 1.8 cm LV Septum (systole) 1.9 cm Left Atria (s.<4.0cm> 4.5 cm LVPW d(<1.2cm) 1.2 cm RV (d.<2.3cm) 3.4 cm LVPW (sytole) 1.2 cm LV diastole(<5.6CM) 5.2 cm MV E-F(>70mm/sec) cm LV systole 2.7 cm LVOT Diameter 2.0 cm MV exc.(>10mm) cm Est.ejection fraction (50-75%) 55 % DOPPLER: LVIT cm/sec A 104 cm/sec E 115 cm/sec LA cm/sec RVSP 27 mmHg LVOT 126 cm/sec AOP1/2T m/s Asc. Ao 168 cm/sec RVOT 85 cm/sec RA 4.5 cm/sec PA 88 cm/sec AV Gradient Peak 11 mmHg AV Mean 6 mmHg AV Area 2.1 cm MV Gradient Peak 6 mmHg MV Mean 2 mmHg MV Area cm COMMENTS: Technical Solutions Director: Yohan REYES Bottle Packer: Robe Graf TAPE# Pericardial Effusion N DATE OF SERVICE: 10/26/2020 CLINICAL INDICATION: Unilateral edema in lower extremity. INTERPRETATION: Normal left ventricular chamber size and contractile function with an ejection fraction of 55% to 60%. Mild left atrial chamber enlargement. Right atrium and right ventricular chamber size and function appear normal. Aortic valve appears normal. No aortic regurgitation/stenosis. Mitral valve appears normal. Trivial mitral regurgitation. Tricuspid valve appears normal. Trivial tricuspid regurgitation. Pulmonic valve appears normal. Trivial ECHOCARDIOGRAM REPORT [id number] SUJIT SPANGLER pulmonary insufficiency. No pericardial effusion visualized. IMPRESSION: Normal left ventricular chamber size and contractile function, ejection fraction 55% to 60%. TRANSINT:[id number] Voice Confirmation ID: [id number] DOCUMENT ID: [id number] ESTRELLITA GRAF MD CC: [id number] DICTATION DATE: 10/26/20 1342 SEMICONDUCTOR PACKAGES SEALER: 10/26/20 1851 ADM IN [facility] [address] [id number]
[2020-10-25 19:01] LABS: BASOPHILS 0.2 % (0-2); EOSINOPHILS 3.5 % (0-7); HEMATOCRIT 31.2 % (42.0-54.0); HEMOGLOBIN 10.4 g/dL (13.5-17.5); IMMATURE GRANULOCYTES 0.2 % (0-5); LYMPHOCYTE ABS# 2.42 10x3/uL (1.32-3.57); MCH 29.5 pg (26.0-34.0); MCHC 33.3 g/dL (31.0-37.0); MCV 88.6 fL (80.0-100.0); MONOCYTES 9.6 % (2-11); NEUTROPHIL ABS# 5.96 10x3/uL (1.78-5.38); NEUTROPHILS 61.5 % (40-80); PLATELET COUNT 419 10x3/uL (130-400); RBC 3.52 10x6/uL (4.20-6.10); RDW 16.1 % (11.5-14.5); WBC 9.7 10x3/uL (4.8-10.8)
[2020-10-25 19:12] LABS: ALBUMIN 2.9 g/dL (3.4-5.0); ALKALINE PHOSPHATASE 66 U/L (30-120); ALT (SGPT) 14 U/L (10-68); BILIRUBIN - TOTAL 0.24 mg/dL (0.2-1.3); CALC OSMOLALITY 275 mosm/kg (275-300); CALCIUM 8.6 mg/dL (8.5-10.1); CARBON DIOXIDE 25.7 mmol/L (21.0-32.0); CHLORIDE - SERUM 104 mmol/L (98-107); CREATININE - SERUM 0.8 mg/dL (0.6-1.3); GLUCOSE 88 mg/dL (74-106); PROTEIN - SERUM 6.7 g/dL (6.4-8.2); SODIUM 139 mmol/L (136-145); UREA NITROGEN 9 mg/dL (7-18); eGFR NON AFRICAN AMERICAN > 90 mL/min (90-120)
[2020-10-25 19:14] LABS: POTASSIUM - SERUM 2.8 mmol/L (3.5-5.1)
[2020-10-25 19:18] LABS: APTT 52.6 SECONDS (22.8-39.4); INR 1.77 (0.85-1.17); PROTIME 19.2 SECONDS (11.6-15.0)
[2020-10-25 19:42] VITALS: BP 116/71
[2020-10-25 20:42] VITALS: BP 106/69
[2020-10-25 21:42] VITALS: BP 108/70
[2020-10-25 22:42] VITALS: BP 103/61
--- NOTE | 2020-10-26 00:04 | NUR ---
PT TO ROOM 2135 VIA WHEELCHAIR ACCOMPANIED BY HOSPITAL STAFF.
--- NOTE | 2020-10-26 00:10 | NUR ---
RECEIVED FROM ER, A&O X4, PLACED ON [id number], MED AND HISTORY COMPLETE, ASKING FOR PAIN MEDS, WILL CHECK WHEN HE CAN HAVE MEDS AGAIN, CALL LIGHT IN REACH, WILL CONTINUE PLAN OF CARE
[2020-10-26 00:42] VITALS: BP 114/73
[2020-10-26 00:48] VITALS: BP 114/73; BMI 20.4
--- NOTE | 2020-10-26 01:20 | NUR ---
RECHECK ON PT, SLEEPING AT THIS TIME, WILL CONTINUE PLAN OF CARE
[2020-10-26 05:34] LABS: BASOPHILS 0.4 % (0-2); EOSINOPHILS 5.6 % (0-7); HEMATOCRIT 31.1 % (42.0-54.0); IMMATURE GRANULOCYTES 0.1 % (0-5); LYMPHOCYTE ABS# 2.03 10x3/uL (1.32-3.57); LYMPHOCYTES 25.1 % (15-50); MCH 28.7 pg (26.0-34.0); MCHC 32.2 g/dL (31.0-37.0); MCV 89.1 fL (80.0-100.0); MEAN PLATELET VOLUME 9.4 fL (7.4-10.4); MONOCYTES 7.2 % (2-11); NEUTROPHIL ABS# 4.98 10x3/uL (1.78-5.38); NEUTROPHILS 61.6 % (40-80); PLATELET COUNT 445 10x3/uL (130-400); RBC 3.49 10x6/uL (4.20-6.10); RDW 16.2 % (11.5-14.5); WBC 8.1 10x3/uL (4.8-10.8)
[2020-10-26 05:41] VITALS: BP 113/69
[2020-10-26 05:59] LABS: ALBUMIN 2.7 g/dL (3.4-5.0); ALKALINE PHOSPHATASE 69 U/L (30-120); ALT (SGPT) 11 U/L (10-68); BILIRUBIN - TOTAL 0.29 mg/dL (0.2-1.3); CALC OSMOLALITY 276 mosm/kg (275-300); CALCIUM 8.2 mg/dL (8.5-10.1); CARBON DIOXIDE 26.6 mmol/L (21.0-32.0); CHLORIDE - SERUM 107 mmol/L (98-107); CREATININE - SERUM 0.6 mg/dL (0.6-1.3); GLUCOSE 94 mg/dL (74-106); MAGNESIUM - SERUM 2.1 mg/dL (1.8-2.4); PHOSPHOROUS 2.9 mg/dL (2.5-4.9); POTASSIUM - SERUM 3.4 mmol/L (3.5-5.1); PROTEIN - SERUM 6.3 g/dL (6.4-8.2); SODIUM 140 mmol/L (136-145); UREA NITROGEN 7 mg/dL (7-18); eGFR NON AFRICAN AMERICAN > 90 mL/min (90-120)
[2020-10-26 09:28] VITALS: BP 117/70
--- NOTE | 2020-10-26 13:47 | CN ---
PATIENT NAME:SUJIT SPANGLER MEDICAL RECORD: [id number] : 62 LOCATION:D.M2 D.2135 ADMIT DATE: 10/25/20 ACCOUNT: [id number] CONSULTING PHYSICIAN: ESTRELLITA VARGAS MD REFERRING PHYSICIAN: MAR TEJEDA MD DATE OF CONSULTATION: 10/26/2020 HISTORY: The patient is a 59-year-old male with history of peripheral artery disease status post stenting -- left lower extremity via the patient, history of DVT, hypertension, who presented to the ER with complaints of lower extremity edema of the left leg. The patient had a venous Doppler Exam that was negative for evidence of acute DVT. I asked to evaluate from a cardiovascular standpoint. PAST MEDICAL HISTORY: Significant for; 1. Peripheral artery disease. 2. History of percutaneous intervention/stenting of left leg 3. History of hypertension. 4. History of DVT. MEDICATIONS: 1. Xarelto 15 mg p.o. b.i.d. 2. Plavix 75 mg daily. 3. Aspirin 81 mg daily. 4. Norvasc 10 mg daily. PHYSICAL EXAMINATION: GENERAL: Pleasant middle-aged white male, oriented, in no apparent distress. VITAL SIGNS: Blood pressure 114/70, pulse 60s (regular). HEENT: Sclerae are clear; conjunctivae pink. NECK: Supple; no appreciable JVD. HEART: Regular rhythm and rate. LUNGS: Clear. ABDOMEN: Benign. EXTREMITIES: Trace edema, left lower extremity. Distal pulses left and right intact. Femoral pulses intact; distal pulses, dorsalis pedis present and intact. NEUROLOGIC: Nonfocal. ASSESSMENT AND PLAN: 1. History of peripheral artery disease, status post percutaneous/stent procedure of the left leg. 2. Hypertension. 3. History of deep venous thrombosis. 4. Cellulitis, lower extremity PLAN: Continue with current medical management at this time. No further cardiac intervention or workup needed at this time. The patient may be discharged with outpatient followup in cardiovascular clinic. TRANSINT:[id number] Voice Confirmation ID: [id number] DOCUMENT ID: [id number] CONSULT REPORT [id number] SUJIT SPANGLER MOSES MD at 1340 CC: [id number] DICTATION DATE: 10/26/2043 SUGAR REFINERY SUPERVISOR: 10/26/20 1119 ADM IN [facility] [address] [id number]
[2020-10-26 16:32] VITALS: BP 111/66
--- NOTE | 2020-10-26 19:19 | NUR ---
RECEIVED REPORT, WILL ASSUME CARE OF PT, SLEEPING NO DISTRESS NOTICED AT THIS TIME, BED IS LOW, SRX1, CALL LIGHT IN REACH, WILL CONTINUE PLAN OF CARE
[2020-10-26 20:30] VITALS: BP 129/71
[2020-10-27 00:30] VITALS: BP 135/73
[2020-10-27 04:30] VITALS: BP 143/81
--- NOTE | 2020-10-27 05:41 | NUR ---
I have reviewed this patient and I concur with the Shift Assessment completed by the Licensed Practical Nurse today this shift.
[2020-10-27 08:21] VITALS: BP 109/68
[2020-10-27 08:50] LABS: CALCIUM 8.8 mg/dL (8.5-10.1); CARBON DIOXIDE 24.4 mmol/L (21.0-32.0); CHLORIDE - SERUM 108 mmol/L (98-107); CREATININE - SERUM 0.7 mg/dL (0.6-1.3); GLUCOSE 90 mg/dL (74-106); MAGNESIUM - SERUM 2.2 mg/dL (1.8-2.4); SODIUM 143 mmol/L (136-145); eGFR NON AFRICAN AMERICAN > 90 mL/min (90-120)
[2020-10-27 08:52] LABS: CALC OSMOLALITY 283 mosm/kg (275-300); PHOSPHOROUS 3.7 mg/dL (2.5-4.9); POTASSIUM - SERUM 4.3 mmol/L (3.5-5.1); UREA NITROGEN 9 mg/dL (7-18)
[2020-10-27 09:00] LABS: BASOPHILS 0.2 % (0-2); EOSINOPHILS 3.9 % (0-7); IMMATURE GRANULOCYTES 0.3 % (0-5); LYMPHOCYTE ABS# 1.36 10x3/uL (1.32-3.57); LYMPHOCYTES 14.3 % (15-50); MCH 28.9 pg (26.0-34.0); MCHC 32.4 g/dL (31.0-37.0); MCV 89.2 fL (80.0-100.0); NEUTROPHIL ABS# 7.15 10x3/uL (1.78-5.38); NEUTROPHILS 75.3 % (40-80); PLATELET COUNT 453 10x3/uL (130-400); RBC 3.81 10x6/uL (4.20-6.10); RDW 16.1 % (11.5-14.5); WBC 9.5 10x3/uL (4.8-10.8)
[2020-10-27] MEDS ORDERED: CLEOCIN HCL300 MG PO (12:20)
[2020-10-27 12:36] VITALS: BP 111/71
[2020-10-27 13:51] VITALS: Ht 170.2 cm; Wt 59.0 kg
--- NOTE | 2020-10-27 14:26 | NUR ---
NURSE REVIEWED DC INSTRUCTIONS AT THIS TIME. PATIENT DENIES QUESTIONS. REMINDED OF FOLLOW UP APPT. IGNACIO REMINDED TO CALL OUT WHEN HE WAS READY TO BE WHEELED OUT.
--- NOTE | 2020-10-27 14:35 | NUR ---
NURSE DC IV WITH CATH TIP INTACT. NURSE WALKED WITH PATIENT OUT TO THE FRONT DOOR. PATIENT HAD BELONGINGS IN HAND. NAD NOTED.
== END 2020-10-27 14:36 | disposition home or self-care (01) | DRG 603 ==
LOC: D.ER 18:30 → D.M2 20:33 → OBSVTIME 20:33 → D.M2 10-26 16:22
PROVIDERS: Family Medicine; ADMIT Emergency Medicine; ATTEND Emergency Medicine
DX: L03.116 Cellulitis of left lower limb (principal); E87.6 Hypokalemia; I73.9 Peripheral vascular disease, unspecified; Z79.01 Long term (current) use of anticoagulants; E78.5 Hyperlipidemia, unspecified; I25.10 Atherosclerotic heart disease of native coronary artery without angina pectoris; J44.9 Chronic obstructive pulmonary disease, unspecified; F32.9 Major depressive disorder, single episode, unspecified; G89.29 Other chronic pain; D64.9 Anemia, unspecified

== ENCOUNTER → 2020-12-16 08:29 | Outpatient (CLI) | payer MEDICAID ==
[2020-10-27 13:51] VITALS: BMI 20.3
[~2020-12-16 08:29] MED LIST changes: +CLEOCIN HCL300 MG PO
== END | disposition home or self-care (01) ==
LOC: D.NM 08:15
PROVIDERS: ATTEND Internal Medicine Medical Oncology
DX: D47.3 Essential (hemorrhagic) thrombocythemia (principal); D64.9 Anemia, unspecified; D72.829 Elevated white blood cell count, unspecified; M25.551 Pain in right hip

== ENCOUNTER → 2021-01-02 14:18 | Outpatient (CLI) | payer MEDICAID ==
[2020-10-27 13:51] VITALS: BMI 20.3
== END | disposition home or self-care (01) ==
LOC: D.MRI 10-29 14:30
PROVIDERS: ATTEND Registered Nurse Emergency
DX: M54.41 Lumbago with sciatica, right side (principal)